=== PATIENT | male | born 1990 | race Asian ===

== ENCOUNTER → 2019-09-10 | Outpatient (CLI) | payer OTHER | LOC: COL.RAD 07:31 | DX: D49.6 Neoplasm of unspecified behavior of brain (principal); R56.9 Unspecified convulsions | CPT/HCPCS: A9585 ==

== ENCOUNTER → 2021-08-13 | Outpatient (CLI) | payer OTHER | LOC: COL.RAD 13:36 | DX: D49.6 Neoplasm of unspecified behavior of brain (principal) | CPT/HCPCS: A9585 ==